=== PATIENT | male | born 1980 | race African-American/Black ===

== ENCOUNTER 2016-11-17 15:15 | Emergency (ER) | payer OTHER ==
--- NOTE | ~2016-11-17 | CR72 ---
[facility] A Service of [facility] & [facility] RADIOLOGY TEXT RESULTS PATIENT: MARIAH MARCELO LOCATION: SED : 80 UNIT #: [id number] AGE: [address]: Zachary Enriquez MD SEX: M ORDER DR: [id number] [address] [address] [id number] MR#: [id number] Acc #: [id number] NAME: MARIAH MARCELO : 1980 SEX: M STUDY DATE/TIME: 11/17/2016 1438 UNIT: SED ROOM: STUDY DESCRIPTION: CR Chest Single View Portable Attending Physician: Zachary Enriquez M.D. Referring Physician: Brenda Sprague M.D. Ordering Physician: Zachary Enriquez M.D. Primary Care Physician: Brenda Sprague M.D. MEDICAL IMAGING REPORT This report is preliminary unless electronic signature is present. EXAM Chest portable 11/17/2016 1438 hours HISTORY 36-year-old man with elevated blood pressure (176/117). Patient has dizziness, and anxiety today. COMPARISON 07/30/2016 FINDINGS Portable upright chest demonstrates low lung volumes. There is mild cardiomegaly unchanged. Aortic contours are stable. Pulmonary vascularity is normal. The lungs are clear. IMPRESSION Low lung volume film with stable mild cardiac prominence. Aortic contours are normal. The lungs are clear. Dictated by... Vikki Earl M.D. THIS IS AN ELECTRONICALLY VERIFIED REPORT Vikki Earl M.D. at 11/18/2016 9:29 AM Aly TD: 11/17/2016 16:07 JOB #: [id number] MEDICAL IMAGING REPORT Page 1 of 1
--- NOTE | ~2016-11-17 | CT71 ---
[facility] A Service of [facility] RADIOLOGY TEXT RESULTS PATIENT: MARIAH MARCELO LOCATION: SED : 80 UNIT #: [id number] AGE: [address]: Zachary Enriquez MD SEX: M ORDER DR: [id number] [address] [address] [id number] E MR#: [id number] Acc #: [id number] NAME: MARIAH MARCELO : 1980 SEX: M STUDY DATE/TIME: 11/17/2016 14:51 UNIT: SED ROOM: STUDY DESCRIPTION: CT Head Wo Contrast Attending Physician: Zachary Enriquez M.D. Referring Physician: Brenda Sprague M.D. Ordering Physician: Zachary Enriquez M.D. Primary Care Physician: Brenda Sprague M.D. MEDICAL IMAGING REPORT This report is preliminary unless electronic signature is present. EXAM Head CT without contrast. HISTORY Posterior headache, onset today with hypertension and dizziness. COMPARISON 03/20/2016 TECHNIQUE Axial images were obtained without contrast. This CT exam was performed with one or more of the following radiation dose reduction techniques: automatic exposure control, adjustment of mA and/or kV according to patient size, and iterative reconstruction. FINDINGS Axial noncontrast images were obtained from the skull base to the vertex. Ventricular size and configuration are normal. There is no evidence of acute infarct or hemorrhage. There are no extra-axial fluid collections. No mass lesion or mass effect is seen. There are no skull fractures. IMPRESSION Normal noncontrast head CT. Dictated by... Jesus Escalona M.D. THIS IS AN ELECTRONICALLY VERIFIED REPORT Jesus Escalona M.D. at 11/17/2016 10:21 PM NHANF/amy [facility] A Service of [facility] RADIOLOGY TEXT RESULTS PATIENT: MARIAH MARCELO LOCATION: SED : 80 UNIT #: [id number] AGE: [address]: Zachary Enriquez MD SEX: M ORDER DR: TD: 11/17/2016 16:33 JOB #: [id number] MEDICAL IMAGING REPORT Page 1 of 1
--- NOTE | ~2016-11-17 | EKG ---
PATIENT: MARIAH MARCELO UNIT #: [id number] Ventricular Rate: 96 BPM Atrial Rate: 96 BPM P-R Interval: 154 ms QRS Duration: 94 ms Q-T Interval: 356 ms QTC Calculation(Bezet): 449 ms P [place]: 20 degrees Calculated R [place]: -4 degrees Calculated T [place]: 19 degrees Diagnosis Line: Normal sinus rhythm Diagnosis Line: Normal ECG Diagnosis Line: Confirmed by CHAPARRO FIERRO MD ([id number]) on Diagnosis Line: 11/23/2016 3:37:30 PM INTERPRETING MD: AYSE
[2016-11-17 15:00] LABS: BASOPHIL# 0.1 X10e3 (0-0.3); EOSINOPHIL# 0.3 X10e3 (0-0.7); EOSINOPHIL% 3.8 % (0.0-7.0); HEMATOCRIT 47.5 % (38.0-50.0); HEMOGLOBIN 15.5 gm/dL (13.0-16.0); LYMPHOCYTE% 36.4 % (17.0-45.0); MEAN CELL VOLUME 88.8 FL (83-96); MEAN CORPUSCULAR HGB CONC 32.6 g/dL (30-36); MEAN PLATELET VOLUME 8.2 FL (6.5-11.5); MONOCYTE# 0.7 X10e3 (0-1.0); MONOCYTE% 8.6 % (3.0-12.0); NEUTROPHIL# 4.1 X10e3 (1.5-7.1); NEUTROPHIL% 50.2 % (40-75); PLATELET COUNT 266 X10e3 (140-420); RED BLOOD COUNT 5.35 X10e (3.90-5.60); RED CELL DISTRIBUTION WIDTH 13.4 % (11.0-15.5); WHITE BLOOD COUNT 8.2 X10e3 (4.0-10.5)
[2016-11-17 15:07] LABS: DIFF IND NO
[~2016-11-17 15:15] MED LIST: ADVAIR 1001 DISK W/D PO; ADVAIR 2501 DISK W/D PO; ADVAIR INH; ALBUTEROL INH; ALBUTEROL17 GM INH; ALLEGRA-D1 TAB.SR1 PO; AMOXICILLIN PO; ASMANEX INHALER IH; BACTRIM DS TABL1 TAB PO; BUSPAR PO; CEFZIL PO; DELARA; DOLOBID500 MG PO; DULERA 100 MCG/13 GM INH; FLONASE16 GM; HCTZ; HCTZ PO; JANUVIA25 MG PO; KCL PO; LEVAQUIN PO; LISINOPRIL PO; LISINOPRIL-HCTZ1 T14 PO; MEDROL DOSEPAK4 MG DOB; MEDROL PO; METFORMIN HCL500 M1 PO; METFORMIN PO; MOBIC PO; MUCINEX DM1 TAB.SR . PO; NAPROSYN500 MG PO; NORVASC PO; PREDNISOLO15 MG/5 ML PO; PREDNISONE PO; PREDNISONE50 MG PO; ROBAXIN500 MG PO; SINGULAIR PO; TOPROL XL PO; VICODIN 5/500 T1 TAB PO; ZITHROMAX PO; ZITHROMAX1 G/PKT PO; ZYRTEC PO
[2016-11-17 15:22] LABS: ALBUMIN SERUM 4.3 g/dL (3.5-5.0); BILIRUBIN, DIRECT 0.1 mg/dL (0.0-0.2); BILIRUBIN,INDIRECT 0.5 mg/dL (0.0-0.9); BILIRUBIN,TOTAL 0.6 mg/dL (0.2-2.0); BUN/CREATININE RATIO 13.33; CALCIUM SERUM 9.3 mg/dL (8.4-10.2); CREATININE SERUM 0.9 mg/dL (0.6-1.4); GLOM FILT RATE Estimated 126.9 mL/min (>60); POTASSIUM 3.6 mmol/L (3.5-5.1); PROTEIN TOTAL SERUM 8.2 g/dL (6.0-8.3)
[2016-11-17 15:53] LABS: POC - CKMB 1.6 ng/mL (0.0-7.9); POC - TROPONIN <0.05 ng/mL (<=0.05)
[2016-11-17 17:07] LABS: POC - CKMB 1.5 ng/mL (0.0-7.9)
[2016-11-17 17:08] LABS: POC - TROPONIN <0.05 ng/mL (<=0.05)
== END 2016-11-17 17:26 | disposition home or self-care (01) ==
LOC: SED 15:15
PROVIDERS: Emergency Medicine
DX: I10 Essential (primary) hypertension (principal); R42 Dizziness and giddiness; E11.9 Type 2 diabetes mellitus without complications; F41.9 Anxiety disorder, unspecified; F17.200 Nicotine dependence, unspecified, uncomplicated; Z91.010 Allergy to peanuts; Z79.899 Other long term (current) drug therapy
CPT/HCPCS: 36405; 70450; 71010; 80048; 80076; 82553; 84484; 85025; 93005; 99284

== ENCOUNTER 2016-11-26 01:29 | Emergency (ER) | payer OTHER | END 2016-11-26 02:53 | disposition home or self-care (01) | LOC: SED 01:29 | DX: F41.9 Anxiety disorder, unspecified (principal); I10 Essential (primary) hypertension; J45.909 Unspecified asthma, uncomplicated; Z91.010 Allergy to peanuts | CPT/HCPCS: 99283 ==

== ENCOUNTER 2017-02-23 11:47 | Emergency (ER) | payer OTHER ==
[~2017-02-23] VITALS: Ht 180.3 cm; Wt 114.8 kg
--- NOTE | ~2017-02-23 | CR72 ---
[facility]. [facility] A Service of [facility] & [facility] RADIOLOGY TEXT RESULTS PATIENT: MARIAH MARCELO LOCATION: SED : 80 UNIT #: [id number] AGE: [address]: Estrella Can MD SEX: M ORDER DR: [id number] [address] [address] [id number] E MR#: [id number] Acc #: [id number] NAME: MARIAH MARCELO : 1980 SEX: M STUDY DATE/TIME: 02/23/2017 13:37 UNIT: SED ROOM: STUDY DESCRIPTION: CR Chest Single View Portable Attending Physician: Estrella Can M.D. Ordering Physician: Estrella Can M.D. Primary Care Physician: Brenda Sprague M.D. MEDICAL IMAGING REPORT This report is preliminary unless electronic signature is present. EXAM Portable chest, 02/23. INDICATIONS Chest pain and shortness of air for the last 2 hours. FINDINGS AP portable chest compared with 11/17/2016. Lung volumes remain low but the lungs are clear. Vascularity is normal. There is no pneumothorax. Heart remains enlarged. IMPRESSION Stable low-volume inspiration with cardiomegaly. No acute findings in the chest. Dictated by... Jesus Hendrix Jr., M.D. THIS IS AN ELECTRONICALLY VERIFIED REPORT Jesus Hendrix Jr., M.D. at 02/23/2017 4:51 PM THAD/amy TD: 02/23/2017 15:44 JOB #: [id number] MEDICAL IMAGING REPORT Page 1 of 1
--- NOTE | ~2017-02-23 | EKG ---
PATIENT: MARIAH MARCELO UNIT #: [id number] Ventricular Rate: 106 BPM Atrial Rate: 106 BPM P-R Interval: 168 ms QRS Duration: 96 ms Q-T Interval: 338 ms QTC Calculation(Bezet): 448 ms P [place]: 29 degrees Calculated R [place]: 7 degrees Calculated T [place]: 32 degrees Diagnosis Line: Sinus tachycardia Diagnosis Line: Cannot rule out Inferior infarct (cited on or Diagnosis Line: before 23-FEB-2017) Diagnosis Line: Abnormal ECG Diagnosis Line: When compared with ECG of 17-NOV-2016 15:05, Diagnosis Line: No significant change was found Diagnosis Line: Confirmed by CHAPARRO FIERRO MD ([id number]) on Diagnosis Line: 02/25/2017 3:17:45 PM INTERPRETING MD: AYSE
[2017-02-23 12:29] LABS: BASOPHIL# 0.1 X10e3 (0-0.3); BASOPHIL% 0.8 % (0-2.5); EOSINOPHIL# 0.2 X10e3 (0-0.7); EOSINOPHIL% 3.2 % (0.0-7.0); HEMATOCRIT 42.3 % (38.0-50.0); HEMOGLOBIN 14.3 gm/dL (13.0-16.0); LYMPHOCYTE# 2.3 X10e3 (1.0-3.5); LYMPHOCYTE% 33.2 % (17.0-45.0); MEAN CELL VOLUME 86.9 FL (83-96); MEAN CORPUSCULAR HEMOGLOBIN 29.5 PG (28-34); MEAN CORPUSCULAR HGB CONC 33.9 g/dL (30-36); MONOCYTE# 0.5 X10e3 (0-1.0); MONOCYTE% 7.5 % (3.0-12.0); NEUTROPHIL# 3.9 X10e3 (1.5-7.1); NEUTROPHIL% 55.3 % (40-75); PLATELET COUNT 223 X10e3 (140-420); RED BLOOD COUNT 4.87 X10e (3.90-5.60); RED CELL DISTRIBUTION WIDTH 13.8 % (11.0-15.5); WHITE BLOOD COUNT 7.1 X10e3 (4.0-10.5)
[2017-02-23 12:32] LABS: DIFF IND NO
[2017-02-23 12:39] LABS: POC - CKMB 1.2 ng/mL (0.0-7.9); POC - TROPONIN <0.05 ng/mL (<=0.05)
[2017-02-23 12:40] LABS: INR 1.1; PROTHROMBIN TIME (PATIENT) 12.5 SECONDS (9.5-12.4)
[2017-02-23 12:47] LABS: ALBUMIN SERUM 4.1 g/dL (3.5-5.0); BILIRUBIN, DIRECT 0.1 mg/dL (0.0-0.2); BILIRUBIN,INDIRECT 0.7 mg/dL (0.0-0.9); BILIRUBIN,TOTAL 0.8 mg/dL (0.2-2.0); BUN/CREATININE RATIO 15.55; CALCIUM SERUM 8.8 mg/dL (8.4-10.2); CREATININE SERUM 0.9 mg/dL (0.6-1.4); GLOM FILT RATE Estimated 126.9 mL/min (>60); MAGNESIUM 1.9 mg/dL (1.6-3.0); PARTIAL THROMBOPLASTIN TIME 27.5 SECONDS (25.6-38.1); POTASSIUM 3.5 mmol/L (3.5-5.1); PROTEIN TOTAL SERUM 7.8 g/dL (6.0-8.3)
[2017-02-23 13:03] LABS: DDIMER <200 NG/ML (0-200)
[2017-02-23 19:03] LABS: POC - CKMB <1.0 ng/mL (0.0-7.9); POC - TROPONIN <0.05 ng/mL (<=0.05)
== END 2017-02-23 16:00 | disposition home or self-care (01) ==
LOC: SED 11:47
PROVIDERS: Student in an Organized Health Care Education/Training Program
DX: R73.9 Hyperglycemia, unspecified (principal); F41.9 Anxiety disorder, unspecified; R05 Cough; I10 Essential (primary) hypertension
CPT/HCPCS: 36415; 71010; 80048; 80076; 82553; 83735; 83880; 84484; 85025; 85379; 85610; 85730; 93005; 96361; 96374; 96375; 99285; J1885; J2060